=== PATIENT | female | born 1955 | race Caucasian/White ===

== ENCOUNTER 2022-04-23 08:34 | Emergency (ER) | payer MEDICARE, MEDICAID ==
[~2022-04-23] VITALS: Ht 167.6 cm; Wt 95.4 kg
[2022-04-23 11:15] VITALS: BP 145/103
[2022-04-23] MEDS ORDERED: KETOROLAC TROMETH 60MG/2ML VIAL IM ONE (11:15)
[2022-04-23] MEDS ORDERED: MELO7.5T9 PO (11:16)
== END 2022-04-23 11:31 | disposition home or self-care (01) ==
LOC: ER 08:34
DX: S63.502A Unspecified sprain of left wrist, initial encounter (principal); Z79.899 Other long term (current) drug therapy; Z88.8 Allergy status to other drugs, medicaments and biological substances; Z88.2 Allergy status to sulfonamides; X50.1XXA Overexertion from prolonged static or awkward postures, initial encounter; Y93.89 Activity, other specified; Y92.89 Other specified places as the place of occurrence of the external cause; Y99.8 Other external cause status
CPT/HCPCS: 73110; 96372; 99283; J1885